=== PATIENT | female | born 1975 | race American Indian/Alaskan Native ===

== ENCOUNTER 2021-01-28 09:37 | Emergency (ER) | payer OTHER ==
--- NOTE | 2021-01-28 10:42 | Emergency Department Report ---
ED Extremity Problem HPI - General Chief complaint: Extremity Injury, Lower Stated complaint: SWOLLEN LEGS Time Seen by Provider: 01/28/21 10:14 Source: patient Mode of arrival: Ambulatory Limitations: No Limitations - History of Present Illness Initial comments: pt is a 45 yo female who presents to the ED with c/o BLE swelling and pain that began 4 days ago. she states she also feels a burning sensation in her bilateral feet. she states yesterday she noticed an erythematous rash to the legs. she states she just returned from a trip to [facility], she states the flight was about 1 hour and 15 minutes. she denies any CP, SOB, drainage, fever, chills, n/v. PMHx HTN and DM controlled with diet. allergy to lisinopril. pt denies hormone use or recent surgery. Severity scale (0 -10): 4 - Related Data Previous Rx's Medication Instructions Recorded Last Taken Type EPINEPHrine (NF) [Epipen] 0.3 mg IM ONCE PRN #1 syringekit 10/10/13 Unknown Rx HYDROcodone/APAP 5-325 [[place] 1 each PO Q6H PRN #15 tablet 10/10/13 Unknown Rx 5-325 mg TAB] Ipratropium/Albuterol Sulfate 1 ampul IH Q6HRT PRN #30 ampul.neb 10/10/13 Unknown Rx [DUONEB *Not for PRN Use*] amLODIPine 10 mg PO QDAY #30 tablet 10/10/13 Unknown Rx levoFLOXacin [Levaquin TAB] 750 mg PO Q24HR #8 tablet 10/10/13 Unknown Rx Prednisone [Prednisone 5 mg (6-Day 5 mg PO .TAPER #1 tab.ds.pk 10/11/13 Unknown Rx Pack, 21 Tabs)] hydroCHLOROthiazide [Hctz] 12.5 mg PO QDAY #30 capsule 10/11/13 Unknown Rx HYDROcodone/APAP 5-325 [[place] 1 each PO Q6HR PRN #12 tablet 01/28/21 Unknown Rx 5/325] Naproxen 375 mg PO BID PRN #20 tablet 01/28/21 Unknown Rx predniSONE [Deltasone] 40 mg PO DAILY 5 Days #10 tablet 01/28/21 Unknown Rx Allergies Allergy/AdvReac Type Severity Reaction Status Date / Time lisinopril Allergy Angioedema Verified 05/28/14 01:08 ED Review of Systems ROS: Stated complaint: SWOLLEN LEGS Other details as noted in HPI Comment: All other systems reviewed and negative ED Past Medical Hx - Past Medical History Hx Hypertension: Yes Hx Diabetes: Yes Hx HIV: No - Surgical History Past Surgical History?: No - Social History Smoking Status: Unknown if ever smoked - Medications Home Medications: Home Medications Medication Instructions Recorded Confirmed Last Taken Type EPINEPHrine (NF) [Epipen] 0.3 mg IM ONCE PRN #1 syringekit 10/10/13 Unknown Rx HYDROcodone/APAP 5-325 [[place] 1 each PO Q6H PRN #15 tablet 10/10/13 Unknown Rx 5-325 mg TAB] Ipratropium/Albuterol Sulfate 1 ampul IH Q6HRT PRN #30 ampul.neb 10/10/13 Unknown Rx [DUONEB *Not for PRN Use*] amLODIPine 10 mg PO QDAY #30 tablet 10/10/13 Unknown Rx levoFLOXacin [Levaquin TAB] 750 mg PO Q24HR #8 tablet 10/10/13 Unknown Rx Prednisone [Prednisone 5 mg (6-Day 5 mg PO .TAPER #1 tab.ds.pk 10/11/13 Unknown Rx Pack, 21 Tabs)] hydroCHLOROthiazide [Hctz] 12.5 mg PO QDAY #30 capsule 10/11/13 Unknown Rx HYDROcodone/APAP 5-325 [[place] 1 each PO Q6HR PRN #12 tablet 01/28/21 Unknown Rx 5/325] Naproxen 375 mg PO BID PRN #20 tablet 01/28/21 Unknown Rx predniSONE [Deltasone] 40 mg PO DAILY 5 Days #10 tablet 01/28/21 Unknown Rx ED Physical Exam - General Limitations: No Limitations General appearance: alert, in no apparent distress - Head Head exam: Present: atraumatic, normocephalic - Eye Eye exam: Present: normal appearance - ENT ENT exam: Present: mucous membranes moist - Extremities Exam Extremities exam: Present: other (ttp to the BLE, mild non pitting edema, there is erythematous macules present to the lower legs bilaterally, neurovascularly intact, compartments are soft, no ulceration) - Neurological Exam Neurological exam: Present: alert, oriented X3 - Psychiatric Psychiatric exam: Present: normal affect, normal mood - Skin Skin exam: Present: warm, dry ED Course Vital Signs 01/28/21 01/28/2101/28/21 09:41 12:03 12:15 Temperature 98.1 F Pulse Rate 79 70 Respiratory 20 15 20 Rate Blood Pressure Blood Pressure 139/85 [Right] O2 Sat by Pulse 95 97 Oximetry 01/28/21 01/28/21 01/28/21 12:31 12:45 13:00 Temperature Pulse Rate 65 70 76 Respiratory 14 18 11 L Rate Blood Pressure 140/80 141/83 Blood Pressure [Right] O2 Sat by Pulse 97 96 Oximetry 01/28/21 14:19 Temperature Pulse Rate 71 Respiratory 16 Rate Blood Pressure Blood Pressure 139/82 [Right] O2 Sat by Pulse 98 Oximetry ED Medical Decision Making - Lab Data Result diagrams: 01/28/21 11:51 01/28/21 11:51 Lab Results 01/28/21 01/28/21 Range/Units 11:51 11:51 WBC 5.1 (4.5-11.0) K/mm3 RBC 4.54 (3.65-5.03) M/mm3 Hgb 12.2 (10.1-14.3) gm/dl Hct 37.3 (30.3-42.9) % MCV 82 (79-97) fl MCH 27 L (28-32) pg MCHC 33 (30-34) % RDW 15.4 H (13.2-15.2) % Plt Count 293 (140-440) K/mm3 Lymph % (Auto) 37.3 H (13.4-35.0) % Harmon % (Auto) 9.8 H (0.0-7.3) % Eos % (Auto) 2.9 (0.0-4.3) % Baso % (Auto) 0.5 (0.0-1.8) % Lymph # (Auto) 1.9 (1.2-5.4) K/mm3 Harmon # (Auto) 0.5 (0.0-0.8) K/mm3 Eos # (Auto) 0.2 (0.0-0.4) K/mm3 Baso # (Auto) 0.0 (0.0-0.1) K/mm3 Seg Neutrophils % 49.5 (40.0-70.0) % Seg Neutrophils # 2.5 (1.8-7.7) K/mm3 Sodium 143 (137-145) mmol/L Potassium 4.3 (3.6-5.0) mmol/L Chloride 105.2 (98-107) mmol/L Carbon Dioxide 24 (22-30) mmol/L Anion Gap 18 mmol/L BUN 9 (7-17) mg/dL Creatinine 0.6 (0.6-1.2) mg/dL Estimated GFR > 60 ml/min BUN/Creatinine Ratio 15 % Glucose 86 (65-100) mg/dL Calcium 9.2 (8.4-10.2) mg/dL Total Bilirubin 0.30 (0.1-1.2) mg/dL AST 12 (5-40) units/L ALT 12 (7-56) units/L Alkaline Phosphatase 82 (35-129) units/L C-Reactive Protein 1.30 (0.00-1.30) mg/dL NT-Pro-B Natriuret Pep 36.38 (0-450) pg/mL Total Protein 7.1 (6.3-8.2) g/dL Albumin 4.3 (3.9-5) g/dL Albumin/Globulin Ratio 1.5 % Vital Signs 01/28/21 01/28/21 01/28/21 09:41 12:03 12:15 Temperature 98.1 F Pulse Rate 79 70 Respiratory 20 15 20 Rate Blood Pressure Blood Pressure 139/85 [Right] O2 Sat by Pulse 95 97 Oximetry 01/28/21 01/28/21 01/28/21 12:31 12:45 13:00 Temperature Pulse Rate 65 70 76 Respiratory 14 18 11 L Rate Blood Pressure 140/80 141/83 Blood Pressure [Right] O2 Sat by Pulse 97 96 Oximetry 01/28/21 14:19 Temperature Pulse Rate 71 Respiratory 16 Rate Blood Pressure Blood Pressure 139/82 [Right] O2 Sat by Pulse 98 Oximetry - Radiology Data Radiology results: report reviewed Ordering Physician: SHALA JHA Date of Service: 01/28/21 Procedure(s): VL venous duplex LE BILAT Accession Number(s): [id number] cc: SHALA JHA DUPLEX DOPPLER LOWER EXTREMITY VEINS, BILATERAL INDICATION / CLINICAL INFORMATION: BLE swelling, pain. TECHNIQUE: Duplex doppler imaging was performed through the veins of both lower extremities using venous compression and other maneuvers. COMPARISON: None available. FINDINGS: RIGHT COMMON FEMORAL VEIN: Negative. RIGHT FEMORAL VEIN: Negative. RIGHT POPLITEAL VEIN: Negative. RIGHT CALF VEINS: Negative. LEFT COMMON FEMORAL VEIN: Negative. LEFT FEMORAL VEIN: Negative. LEFT POPLITEAL VEIN: Negative. LEFT CALF VEINS: Negative. ADDITIONAL FINDINGS: None. IMPRESSION: 1. No sonographic evidence for DVT in either lower extremity. Signer Name: Jose A Atkinson MD Signed: 01/28/2021 11:18 AM Workstation Name: [id number] Transcribed By: SS Dictated By: Jose A Atkinson MD Electronically Authenticated By: Jose A Atkinson MD Signed Date/Time: 01/28/211117 DD/ 17 TD/TT: Print - Medical Decision Making pt is a 45 yo female who presents to the ED with c/o BLE swelling and pain that began 4 days ago. she states she also feels a burning sensation in her bilateral feet. she states yesterday she noticed an erythematous rash to the legs. she states she just returned from a trip to [facility], she states the flight was about 1 hour and 15 minutes. she denies any CP, SOB, drainage, fever, chills, n/v. PMHx HTN and DM controlled with diet. allergy to lisinopril. pt denies hormone use or recent surgery. Vitals are stable. On exam:ttp to the BLE, mild non pitting edema, there is erythematous macules present to the lower legs bilaterally, neurovascularly intact, compartments are soft, no ulceration. Labs are normal. No leukocytosis, normal CRP, normal renal and liver function on laboratory studies. Doppler ultrasound bilateral lower extremities: 1. No sonographic evidence for DVT in either lower extremity. Tubes and examination appear likely consistent with a possible vasculitis. No signs of acute arterial occlusion at this time, no ulcerations. Patient given prescription for medication. Discussed the importance of outpatient follow-up with primary care and vascular surgery. Advised patient please take medication as prescribed. increase your fluid intake. follow up with a primary care doctor. follow up with a vascular surgeon. return to the emergency room for any new or worsening symptoms. please monitor your blood sugar as steroids may increase, if it is greater than 250 stop the steroids (prednisone) Critical care attestation.: If time is entered above; I have spent that time in minutes in the direct care of this critically ill patient, excluding procedure time. ED Disposition Clinical Impression: Leg swelling, Rash Leg pain Qualifiers: Laterality: bilateral Qualified Code(s): M79.604 - Pain in right leg Disposition: 01 HOME / SELF CARE / HOMELESS Is pt being admited?: No Does the pt Need Aspirin: No Condition: Stable Instructions: Vasculitis Additional Instructions: please take medication as prescribed. increase your fluid intake. follow up with a primary care doctor. follow up with a vascular surgeon. return to the emergency room for any new or worsening symptoms. please monitor your blood sugar as steroids may increase, if it is greater than 250 stop the steroids (prednisone) Prescriptions: predniSONE [Deltasone] 40 mg PO DAILY 5 Days #10 tablet Naproxen 375 mg PO BID PRN #20 tablet PRN Reason: pain HYDROcodone/APAP 5-325 [[place] 5/325] 1 each PO Q6HR PRN #12 tablet PRN Reason: Pain , Severe (7-10) Referrals: PRABHAKAR CARMONA MD [Staff Physician] - 3-5 Days [facility] [Provider Group] - 3-5 Days [facility] [Provider Group] - 3-5 Days Time of Disposition: 13:22 Print Language: ROMANIAN
--- NOTE | 2021-01-28 11:23 | Vascular Lab Report ---
DUPLEX DOPPLER LOWER EXTREMITY VEINS, BILATERAL INDICATION / CLINICAL INFORMATION: BLE swelling, pain. TECHNIQUE: Duplex doppler imaging was performed through the veins of both lower extremities using red ous compression and other maneuvers. COMPARISON: None available. FINDINGS: RIGHT COMMON FEMORAL VEIN: Negative. RIGHT FEMORAL VEIN: Negative. RIGHT POPLITEAL VEIN: Negative. RIGHT CALF VEINS: Negative. LEFT COMMON FEMORAL VEIN: Negative. LEFT FEMORAL VEIN: Negative. LEFT POPLITEAL VEIN: Negative. LEFT CALF VEINS: Negative. ADDITIONAL FINDINGS: None. IMPRESSION: 1. No sonographic evidence for DVT in either lower extremity. Signer Name: Jose A Atkinson MD Signed: 01/28/2021 11:18 AM Workstation Name: [id number]
[2021-01-28 12:40] LABS: Basophils % (Auto) 0.5 % (0.0-1.8); Eosinophils # (Auto) 0.2 K/mm3 (0.0-0.4); Eosinophils % (Auto) 2.9 % (0.0-4.3); Hematocrit 37.3 % (30.3-42.9); Hemoglobin 12.2 gm/dl (10.1-14.3); Lymphocytes # (Auto) 1.9 K/mm3 (1.2-5.4); Lymphocytes % (Auto) 37.3 % (13.4-35.0); Mean Corpuscular HGB Conc 33 % (30-34); Mean Corpuscular Volume 82 fl (79-97); Monocytes # (Auto) 0.5 K/mm3 (0.0-0.8); Monocytes % (Auto) 9.8 % (0.0-7.3); Platelet Count 293 K/mm3 (140-440); Red Blood Count 4.54 M/mm3 (3.65-5.03); Red Cell Distribution Width 15.4 % (13.2-15.2)
[2021-01-28 12:48] LABS: Alanine Aminotransferase 12 units/L (7-56); Albumin 4.3 g/dL (3.9-5); Blood Urea Nitrogen 9 mg/dL (7-17); Calcium 9.2 mg/dL (8.4-10.2); Hemolysis Index 1
[2021-01-28 13:17] LABS: BUN/Creatinine Ratio 15
[2021-01-28 14:20] VITALS: BP 139/82
== END 2021-01-28 14:47 | disposition home or self-care (01) ==
LOC: ED 09:37
DX: M79.604 Pain in right leg (principal); M79.605 Pain in left leg; M79.89 Other specified soft tissue disorders; R21 Rash and other nonspecific skin eruption; E11.8 Type 2 diabetes mellitus with unspecified complications; Z88.8 Allergy status to other drugs, medicaments and biological substances
CPT/HCPCS: 36415; 80053; 83880; 85025; 86140; 93970; 99284